=== PATIENT | male | born 1935 | race Caucasian/White ===

== ENCOUNTER 2018-06-25 09:18 | Inpatient (IN) ==
[2018-06-25] MEDS ORDERED: Aluminum/Magnesium/Simethacone Susp 30 ML UDC PO ONE (09:27)
[2018-06-25] MEDS ORDERED: Sod Chloride 0.9% Inj 1,000 ML IV.SIG ONE (09:27)
[2018-06-25] MEDS ORDERED: HYDROmorphone PF Inj 0.5 MG/0.5 ML Syringe IV.PUSH STA (09:29)
--- NOTE | 2018-06-25 09:52 | ED ---
HPI General Chief complaint: Nausea/Vomiting/Diarrhea Stated complaint: Low BP Time Seen by Provider: 06/25/18 09:22 Source: patient Mode of arrival: EMS Limitations: no limitations History of Present Illness HPI Narrative: 82 yo male arrives by EMS 2/2 nausea and vomiting for approximately 1 week. pt unable to tolerate PO hydration. + generalized abdominal pain, worse with palpation, constant. zofran by EMS helped nausea. BP 80s per EMS. HR 80s per EMS. pt unaware of potential causes for nausea and vomiting. [place] sent from [place] due to hypotension in outpatient clinic. Related Data Home Medications Medication Instructions Recorded Confirmed albuterol sulfate 2 puff INHALATION QID PRN 06/25/18 06/25/18 amlodipine 10 mg PO DAILY 06/25/18 06/25/18 aspirin 81 mg PO DAILY 06/25/18 06/25/18 nitroglycerin 0.4 mg SUBLINGUAL Q5-15M PRN 06/25/18 06/25/18 omeprazole 20 mg PO DAILY 06/25/18 06/25/18 sumatriptan succinate 100 mg PO Q2-4H PRN 06/25/18 06/25/18 Allergies Allergy/AdvReac Type Severity Reaction Status Date / Time No Known Allergies Allergy Verified 06/25/18 18:40 Review of Systems ROS Unobtainable ROS Unobtainable: unobtainable due to mental condition PMFSH Social History Social History Substance History: No History of Abuse Second Hand Smoke Exposure: No Smoking Status: Never smoker How Often Do You Have a Drink Containing Alcohol: Never Recent Travel in [facility] within the Last 8 Weeks: No Recent Out of Country Travel within the Last 8 Weeks: No Immunization History Tetanus Immunization: Unsure Exam Narrative Exam Narrative: GENERAL: 82 yo M, moderate distress 2/2 nausea and/or pain SKIN: Focused skin assessment warm/dry. HEAD: Atraumatic. Normocephalic. EYES: Pupils equal and round. No scleral icterus. No injection or drainage. ENT: No nasal bleeding or discharge. Mucous membranes pink and moist. NECK: Trachea midline. No JVD. CARDIOVASCULAR: Regular rate and rhythm. No murmur appreciated. RESPIRATORY: No accessory muscle use. Clear to auscultation. Breath sounds equal bilaterally. GASTROINTESTINAL: soft. TTP generally. MUSCULOSKELETAL: No obvious deformities. No clubbing. No cyanosis. No edema. NEUROLOGICAL: Awake and alert. No obvious cranial nerve deficits. Motor grossly within normal limits. Normal speech. PSYCHIATRIC: Appropriate mood and affect; insight and judgment normal. Course Initial Documented Vital Signs Pulse Rate 82 06/25/18 09:24 Respiratory Rate 18 06/25/18 09:24 Blood Pressure 114/67 06/25/18 09:24 Pulse Oximetry 100 06/25/18 09:24 Last Documented Vital Signs Temperature 97.9 F 06/27/18 12:00 Pulse Rate 63 06/27/18 12:00 Respiratory Rate 18 06/27/18 12:00 Blood Pressure 99/53 L 06/27/18 12:00 Pulse Oximetry 95 06/27/18 12:00 Medical Decision Making MDM Narrative Medical decision making narrative: MARY JANE seen here with BUN/Cr of 89/2.82. Pt to be admitted for IVF and monitoring of renal indices. MARY JANE considered 2/[address] imaging reassuring. Pt had excellent initial response here after IVF and IV zofran. D/w Dr Monroy for [facility]. Medical Screen Exam Complete: Yes Emergency Medical Condition: Yes Lab Data Result diagrams: 06/27/18 06:31 06/27/18 06:31 Lab Results 06/25/18 06/25/18 06/25/18 Range/Units 09:41 09:41 09:41 WBC 16.7 H (4.0-11.0) th/mm3 RBC 3.94 L (4.50-5.90) mil/mm3 Hgb 13.2 (13.0-17.0) gm/dL Hct 37.5 L (39.0-51.0) % MCV 95.0 (80.0-100.0) fL MCH 33.3 (27.0-34.0) pg MCHC 35.1 (32.0-36.0) % RDW 13.1 (11.6-17.2) % Plt Count 184 (150-450) th/mm3 MPV 10.9 (7.0-11.0) fL Prelim Diff (Auto) Slide review pending Neut % (Auto) 86.7 H (16.0-70.0) % Lymph % (Auto) 7.6 L (9.0-44.0) % [place] % (Auto) 5.2 (0.0-8.0) % Eos % (Auto) 0.0 (0.0-4.0) % Baso % (Auto) 0.5 (0.0-2.0) % Neut # (Auto) 14.5 H (1.8-7.7) th/mm3 Lymph # (Auto) 1.3 (1.0-4.8) th/mm3 [place] # (Auto) 0.9 (0.0-0.9) th/mm3 Eos # (Auto) 0.0 (0.0-0.4) th/mm3 Baso # (Auto) 0.1 (0.0-0.2) th/mm3 WBC Differential Manual diff final Seg Neuts % (Manual) 80 H (16-70) % Band Neuts % (Manual) 4 (0-6) % Lymphocytes % (Manual) 13 (9-44) % Monocytes % (Manual) 3 (0-8) % Abs Neuts (Manual) 14.0 H (1.8-7.7) th/mm3 Differential Comment . Platelet Estimate Normal (Normal) Platelet Morphology Normal (Normal) RBC Morphology Normal (Normal) PT 15.3 H (9.8-11.6) sec INR 1.5 Ratio APTT 25.6 (23.4-31.7) sec Sodium 142 (136-145) meq/L Potassium 3.2 L (3.5-5.1) meq/L Chloride 114 H (98-107) meq/L Carbon Dioxide 13.9 L (21.0-32.0) meq/L Anion Gap 14 (5-15) meq/L BUN 89 H (7-18) mg/dL Creatinine 2.82 H (0.60-1.30) mg/dL Estimated GFR 22 L (>89) mL/min Random Glucose 151 H (74-106) mg/dL Lactic Acid (0.4-2.0) mmol/L Calcium 5.2 L* (8.5-10.1) mg/dL Calcium Adj for Albumin 6.6 L* (8.5-10.1) mg/dL Magnesium 1.0 L (1.5-2.5) mg/dL Total Bilirubin 0.3 (0.2-1.0) mg/dL AST 10 L (15-37) U/L ALT 11 L (12-78) U/L Alkaline Phosphatase 107 (45-117) U/L Troponin I Less than 0.02 L (0.02-0.05) ng/mL Total Protein 4.5 L (6.4-8.2) g/dL Albumin 2.3 L (3.4-5.0) g/dL Lipase 129 (73-393) U/L Urine Color (Yellw/Straw) Urine Clarity (Clear) Urine pH (5.0-8.5) Ur Specific [place] (1.002-1.035) Urine Protein (Neg-Trace) mg/dL Urine Glucose (UA) (Negative) mg/dL Urine Ketones (Negative) mg/dL Urine Occult Blood (Negative) Urine Nitrate (Negative) Urine Bilirubin (Negative) Urine Urobilinogen (Less than 2) mg/dL Ur Leukocyte Esterase (Negative) Urine RBC (0-3) /hpf Urine WBC (0-5) /hpf Urine Bacteria (None) /hpf Urine Mucus (Occasional) /lpf Micro UA Comment Ur Microscopic Review Urine Culture Comments Stl C.difficile DNA Amp (Negative) St C. diff Tox Epid 027 (Negative) 06/25/18 06/25/18 06/26/18 Range/Units 16:18 21:40 05:24 WBC 13.7 H (4.0-11.0) th/mm3 RBC 3.86 L (4.50-5.90) mil/mm3 Hgb 12.8 L (13.0-17.0) gm/dL Hct 36.0 L (39.0-51.0) % MCV 93.2 (80.0-100.0) fL MCH 33.1 (27.0-34.0) pg MCHC 35.6 (32.0-36.0) % RDW 12.9 (11.6-17.2) % Plt Count 183 (150-450) th/mm3 MPV 10.9 (7.0-11.0) fL Prelim Diff (Auto) Neut % (Auto) 86.0 H (16.0-70.0) % Lymph % (Auto) 7.1 L (9.0-44.0) % [place] % (Auto) 6.5 (0.0-8.0) % Eos % (Auto) 0.2 (0.0-4.0) % Baso % (Auto) 0.2 (0.0-2.0) % Neut # (Auto) 11.8 H (1.8-7.7) th/mm3 Lymph # (Auto) 1.0 (1.0-4.8) th/mm3 [place] # (Auto) 0.9 (0.0-0.9) th/mm3 Eos # (Auto) 0.0 (0.0-0.4) th/mm3 Baso # (Auto) 0.0 (0.0-0.2) th/mm3 WBC Differential . Seg Neuts % (Manual) (16-70) % Band Neuts % (Manual) (0-6) % Lymphocytes % (Manual) (9-44) % Monocytes % (Manual) (0-8) % Abs Neuts (Manual) (1.8-7.7) th/mm3 Differential Comment Auto diff final Platelet Estimate (Normal) Platelet Morphology (Normal) RBC Morphology (Normal) PT (9.8-11.6) sec INR Ratio APTT (23.4-31.7) sec Sodium (136-145) meq/L Potassium (3.5-5.1) meq/L Chloride (98-107) meq/L Carbon Dioxide (21.0-32.0) meq/L Anion Gap (5-15) meq/L BUN (7-18) mg/dL Creatinine (0.60-1.30) mg/dL Estimated GFR (>89) mL/min Random Glucose (74-106) mg/dL Lactic Acid 1.1 (0.4-2.0) mmol/L Calcium (8.5-10.1) mg/dL Calcium Adj for Albumin (8.5-10.1) mg/dL Magnesium (1.5-2.5) mg/dL Total Bilirubin (0.2-1.0) mg/dL AST (15-37) U/L ALT (12-78) U/L Alkaline Phosphatase (45-117) U/L Troponin I (0.02-0.05) ng/mL Total Protein (6.4-8.2) g/dL Albumin (3.4-5.0) g/dL Lipase (73-393) U/L Urine Color (Yellw/Straw) Urine Clarity (Clear) Urine pH (5.0-8.5) Ur Specific [place] (1.002-1.035) Urine Protein (Neg-Trace) mg/dL Urine Glucose (UA) (Negative) mg/dL Urine Ketones (Negative) mg/dL Urine Occult Blood (Negative) Urine Nitrate (Negative) Urine Bilirubin (Negative) Urine Urobilinogen (Less than 2) mg/dL Ur Leukocyte Esterase (Negative) Urine RBC (0-3) /hpf Urine WBC (0-5) /hpf Urine Bacteria (None) /hpf Urine Mucus (Occasional) /lpf Micro UA Comment Ur Microscopic Review Urine Culture Comments Stl C.difficile DNA Amp Negative (Negative) St C. diff Tox Epid 027 Negative (Negative) 06/26/18 06/27/18 06/27/18 Range/Units 05:24 05:55 06:31 WBC 8.1 (4.0-11.0) th/mm3 RBC 2.91 L (4.50-5.90) mil/mm3 Hgb 9.8 L D (13.0-17.0) gm/dL Hct 28.0 L (39.0-51.0) % MCV 96.4 (80.0-100.0) fL MCH 33.8 (27.0-34.0) pg MCHC 35.1 (32.0-36.0) % RDW 12.9 (11.6-17.2) % Plt Count 134 L (150-450) th/mm3 MPV 11.1 H (7.0-11.0) fL Prelim Diff (Auto) Neut % (Auto) 67.5 (16.0-70.0) % Lymph % (Auto) 18.1 (9.0-44.0) % [place] % (Auto) 6.6 (0.0-8.0) % Eos % (Auto) 7.2 H (0.0-4.0) % Baso % (Auto) 0.6 (0.0-2.0) % Neut # (Auto) 5.5 (1.8-7.7) th/mm3 Lymph # (Auto) 1.5 (1.0-4.8) th/mm3 [place] # (Auto) 0.5 (0.0-0.9) th/mm3 Eos # (Auto) 0.6 H (0.0-0.4) th/mm3 Baso # (Auto) 0.1 (0.0-0.2) th/mm3 WBC Differential . Seg Neuts % (Manual) (16-70) % Band Neuts % (Manual) (0-6) % Lymphocytes % (Manual) (9-44) % Monocytes % (Manual) (0-8) % Abs Neuts (Manual) (1.8-7.7) th/mm3 Differential Comment Auto diff final Platelet Estimate (Normal) Platelet Morphology (Normal) RBC Morphology (Normal) PT (9.8-11.6) sec INR Ratio APTT (23.4-31.7) sec Sodium 141 (136-145) meq/L Potassium 4.0 D (3.5-5.1) meq/L Chloride 109 H (98-107) meq/L Carbon Dioxide 20.1 L (21.0-32.0) meq/L Anion Gap 12 (5-15) meq/L BUN 107 H (7-18) mg/dL Creatinine 2.58 H (0.60-1.30) mg/dL Estimated GFR 24 L (>89) mL/min Random Glucose 170 H (74-106) mg/dL Lactic Acid (0.4-2.0) mmol/L Calcium 7.8 L D (8.5-10.1) mg/dL Calcium Adj for Albumin (8.5-10.1) mg/dL Magnesium (1.5-2.5) mg/dL Total Bilirubin 0.4 (0.2-1.0) mg/dL AST 14 L (15-37) U/L ALT 15 (12-78) U/L Alkaline Phosphatase 135 H (45-117) U/L Troponin I (0.02-0.05) ng/mL Total Protein 5.9 L D (6.4-8.2) g/dL Albumin 3.1 L D (3.4-5.0) g/dL Lipase (73-393) U/L Urine Color Yellow (Yellw/Straw) Urine Clarity Clear (Clear) Urine pH 5.0 (5.0-8.5) Ur Specific [place] 1.014 (1.002-1.035) Urine Protein Negative (Neg-Trace) mg/dL Urine Glucose (UA) 50 (Negative) mg/dL Urine Ketones Negative (Negative) mg/dL Urine Occult Blood Negative (Negative) Urine Nitrate Negative (Negative) Urine Bilirubin Negative (Negative) Urine Urobilinogen Less than 2 (Less than 2) mg/dL Ur Leukocyte Esterase Negative (Negative) Urine RBC 1 (0-3) /hpf Urine WBC 1 (0-5) /hpf Urine Bacteria Rare H (None) /hpf Urine Mucus Few H (Occasional) /lpf Micro UA Comment Culture not ind Ur Microscopic Review Not Reportable Urine Culture Comments Culture not ind Stl C.difficile DNA Amp (Negative) St C. diff Tox Epid 027 (Negative) 06/27/18 Range/Units 06:31 WBC (4.0-11.0) th/mm3 RBC (4.50-5.90) mil/mm3 Hgb (13.0-17.0) gm/dL Hct (39.0-51.0) % MCV (80.0-100.0) fL MCH (27.0-34.0) pg MCHC (32.0-36.0) % RDW (11.6-17.2) % Plt Count (150-450) th/mm3 MPV (7.0-11.0) fL Prelim Diff (Auto) Neut % (Auto) (16.0-70.0) % Lymph % (Auto) (9.0-44.0) % [place] % (Auto) (0.0-8.0) % Eos % (Auto) (0.0-4.0) % Baso % (Auto) (0.0-2.0) % Neut # (Auto) (1.8-7.7) th/mm3 Lymph # (Auto) (1.0-4.8) th/mm3 [place] # (Auto) (0.0-0.9) th/mm3 Eos # (Auto) (0.0-0.4) th/mm3 Baso # (Auto) (0.0-0.2) th/mm3 WBC Differential Seg Neuts % (Manual) (16-70) % Band Neuts % (Manual) (0-6) % Lymphocytes % (Manual) (9-44) % Monocytes % (Manual) (0-8) % Abs Neuts (Manual) (1.8-7.7) th/mm3 Differential Comment Platelet Estimate (Normal) Platelet Morphology (Normal) RBC Morphology (Normal) PT (9.8-11.6) sec INR Ratio APTT (23.4-31.7) sec Sodium 148 H (136-145) meq/L Potassium 4.0 (3.5-5.1) meq/L Chloride 115 H (98-107) meq/L Carbon Dioxide 26.0 (21.0-32.0) meq/L Anion Gap 7 (5-15) meq/L BUN 56 H (7-18) mg/dL Creatinine 1.47 H (0.60-1.30) mg/dL Estimated GFR 46 L (>89) mL/min Random Glucose 106 (74-106) mg/dL Lactic Acid (0.4-2.0) mmol/L Calcium 7.1 L* (8.5-10.1) mg/dL Calcium Adj for Albumin 8.5 D (8.5-10.1) mg/dL Magnesium (1.5-2.5) mg/dL Total Bilirubin 0.3 (0.2-1.0) mg/dL AST 13 L (15-37) U/L ALT 12 (12-78) U/L Alkaline Phosphatase 93 (45-117) U/L Troponin I (0.02-0.05) ng/mL Total Protein 4.3 L D (6.4-8.2) g/dL Albumin 2.2 L D (3.4-5.0) g/dL Lipase (73-393) U/L Urine Color (Yellw/Straw) Urine Clarity (Clear) Urine pH (5.0-8.5) Ur Specific [place] (1.002-1.035) Urine Protein (Neg-Trace) mg/dL Urine Glucose (UA) (Negative) mg/dL Urine Ketones (Negative) mg/dL Urine Occult Blood (Negative) Urine Nitrate (Negative) Urine Bilirubin (Negative) Urine Urobilinogen (Less than 2) mg/dL Ur Leukocyte Esterase (Negative) Urine RBC (0-3) /hpf Urine WBC (0-5) /hpf Urine Bacteria (None) /hpf Urine Mucus (Occasional) /lpf Micro UA Comment Ur Microscopic Review Urine Culture Comments Stl C.difficile DNA Amp (Negative) St C. diff Tox Epid 027 (Negative) Imaging Data Radiologist's impression: Abdomen/Bladder Ultrasound 06/25/18 00:00 CONCLUSION: 1. Echogenic kidneys consistent with medical renal disease. 2. No sonographic evidence for obstructive uropathy. 3. Nonspecific prostate enlargement. Abdomen/Pelvis CT 06/25/18 10:43 CONCLUSION: 1. Nonspecific, nonobstructive bowel gas pattern which may represent an ileus and/or gastroenteritis. 2. 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 3. Status post cholecystectomy. Discharge Plan Discharge Disposition Patient Disposition: ED Admit(ED Internal Use Only) Discharge Condition Condition: Good Discharge Order Discharge Orders: Discharge Order (Routine); Ordered 06/27/18 Ordered By: Triston Monroy ED Use Only Admit Order (Routine); Ordered 06/25/18 Ordered By: Caio Machado Physicians Team ED Provider: Caio Machado Primary Care Provider: [facility] [place] Attending Provider: Triston Monroy Status ED Status: Left Department Discharge Information Discharge Date/Time: 06/25/18 14:15
[2018-06-25 09:59] LABS: Baso # (Auto) 0.1 th/mm3 (0.0-0.2); Baso % (Auto) 0.5 % (0.0-2.0); Hematocrit 37.5 % (39.0-51.0); Hemoglobin 13.2 gm/dL (13.0-17.0); Lymph # (Auto) 1.3 th/mm3 (1.0-4.8); Lymph % (Auto) 7.6 % (9.0-44.0); Mean Corpuscular HGB Conc 35.1 % (32.0-36.0); Mean Corpuscular Hemoglobin 33.3 pg (27.0-34.0); Mean Platelet Volume 10.9 fL (7.0-11.0); Mono # (Auto) 0.9 th/mm3 (0.0-0.9); Mono % (Auto) 5.2 % (0.0-8.0); Neut # (Auto) 14.5 th/mm3 (1.8-7.7); Neut % (Auto) 86.7 % (16.0-70.0); Platelet Count 184 th/mm3 (150-450); Red Blood Count 3.94 mil/mm3 (4.50-5.90); Red Cell Distribution Width 13.1 % (11.6-17.2); White Blood Count 16.7 th/mm3 (4.0-11.0)
[2018-06-25 10:09] LABS: Activated Partial Thrombo Time 25.6 sec (23.4-31.7); INR 1.5 Ratio; Prothrombin Time 15.3 sec (9.8-11.6)
[2018-06-25 10:34] LABS: Alanine Aminotransferase 11 U/L (12-78); Albumin 2.3 g/dL (3.4-5.0); Alkaline Phosphatase 107 U/L (45-117); Anion Gap 14 meq/L (5-15); Aspartate Aminotransferase 10 U/L (15-37); Blood Urea Nitrogen 89 mg/dL (7-18); Calcium 5.2 mg/dL (8.5-10.1); Carbon Dioxide 13.9 meq/L (21.0-32.0); Chloride 114 meq/L (98-107); Glomerular Filtration Rate 22 mL/min (>89); Glucose,Random 151 mg/dL (74-106); Lipase 129 U/L (73-393); Potassium 3.2 meq/L (3.5-5.1); Sodium 142 meq/L (136-145); Total Protein 4.5 g/dL (6.4-8.2)
[2018-06-25 10:45] LABS: Lymphocytes 13 % (9-44); Monocytes 3 % (0-8); Platelet Estimate Normal (Normal); Platelet Morphology Normal (Normal); RBC Morphology Normal (Normal)
[2018-06-25] MEDS ORDERED: Sod Chloride 0.9% Inj 1,000 ML IV.SIG SCH (10:45)
--- NOTE | 2018-06-25 11:28 | CT ---
EXAM DATE: 06/25/2018 11:15 AM EST AGE/SEX: 82 years / Male INDICATIONS: Diffuse abdomen pain with nausea, vomiting and diarrhea for one week. CLINICAL DATA: This is the patient's initial encounter. Patient reports that signs and symptoms have been present for 1 week and indicates a pain score of 8/10. MEDICAL/SURGICAL HISTORY: Diabetes. Hypertension. None. RADIATION DOSE: 5.81 CTDI (mGy) COMPARISON: No prior exams available for comparison. TECHNIQUE: Multiple contiguous axial images were obtained through the abdomen. Images were obtained using multiple row detector helical technique. Using automated exposure control and adjustment of the mA and/or kV according to patient size, radiation dose was kept as low as reasonably achievable to o btain optimal diagnostic quality images. DICOM format image data is available electronically for rev iew and comparison. FINDINGS: Lower Lungs: The visualized lower lungs are clear. The patient is noted to be status post median ster notomy. Liver: The liver has a homogeneous density without space-occupying lesion. There is no dilation of th e biliary tree. Status post cholecystectomy. Spleen: Homogeneous density without enlargement. Pancreas: Unremarkable without mass or calcification. Kidneys: Normal in size and shape. No evidence of mass or hydronephrosis. Renal vascular calcificati ons are present. Adrenal Glands: Unremarkable. Aorta: Atherosclerotic changes are noted in the aorta with ectasia, dilatation calcifications. Ther e is a borderline aneurysmal dilatation measuring 2 3 cm. There is dilatation of both common iliac ar teries measuring up to approximately 2 cm. Bowel/Mesentery: No oral contrast or IV contrast was given limiting the sensitivity exam. There are several loops of nondilated air-containing small bowel several small air-fluid levels. Liquid stool i s noted in the colon with multiple air-fluid levels as well. There is no evidence of free air or flui d. Abdominal Wall: Intact. Retroperitoneum: No evidence of adenopathy in the retrocrural, para-aortic, or deep pelvic regions. Bladder: Contours are smooth. Reproductive Organs: No abnormal masses or calcifications seen. Prosthetic rods are noted in the pen is. Inguinal: The inguinal region is unremarkable without evidence of adenopathy. Bony Structures: Osteopenia, degenerative change and scoliosis are present. CONCLUSION: 1. Nonspecific, nonobstructive bowel gas pattern which may represent an ileus and/or gastroenteritis . 2. 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 3. Status post cholecystectomy. Electronically signed by: Joao Tyson MD 06/25/2018 11:27 AM EST
[2018-06-25] MEDS ORDERED: Acetaminophen 325 MG Tablet PO PRN (14:07)
--- NOTE | 2018-06-25 15:11 | P.HP ---
History of Present Illness Primary Care Physician: [facility] Chief Complaint: Intractable nausea and vomiting History of Present Illness: 82-year-old man with a past medical history of hypertension was brought to the emergency department by EMS for evaluation of intractable nausea and vomiting times 7-day duration. [facility] he was found to be severely dehydrated with elevated heart rate and decrease BP. Abnormal lab in the ED revealed increased BUN and creatinine, elevated WBC. Patient state he has been having loose stools more than usual 18- 20/day. Patient denies any recent antibiotics use. Inpatient Certification: I certify that the inpatient services were ordered in accordance with Medicare regulations governing the order. 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 - Medical History Medical History: Medical History (Last Reviewed 06/25/18 @ 11:50 by Hetal Boykin RN) Acute renal failure Diabetes mellitus Diarrhea [place] (hard of hearing) HTN (hypertension) Tinnitus Ulcerative colitis - Surgical History Surgical History: Surgical History (Last Updated 06/25/18 @ 11:50 by Hetal Boykin RN) History of colectomy Hx of cholecystectomy 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 - Family History Family History: Family History (Last Updated 06/25/18 @ 15:05 by Triston Monroy MD) Other Family history non-contributory - Tobacco History Smoking Status: Never smoker - Alcohol History How Often Do You Have a Drink Containing Alcohol: Never - Substance Use History Substance History: No History of Abuse - Travel History Recent Travel in the [place] Within the Last 8 Weeks: No Recent Travel Out of the Country Within the Last 8 Weeks: No - Immunization History Tetanus Immunization: Unsure Medications and Allergies Active Medications: Active Medications Acetaminophen (Tylenol) 650 mg PO Q4H PRN PRN Reason: Temp > 100.4 Al Hydroxide/Mg Hydroxide (Milk Of Magnesia Liq) 30 ml PO Q12H PRN PRN Reason: Mild Constipation Albuterol (Duoneb Neb (Prn)) 1 ampul NEB Q2HR NEB PRN PRN Reason: SHORTNESS OF BREATH Aspirin (Aspirin Chew) 81 mg PO DAILY TEJA Sodium Bicarbonate 50 meq/ (Sodium Chloride) 1,000 mls @ 125 mls/hr IV.CONT .Q8H TEJA Ondansetron HCl (Zofran Inj) 4 mg IV.PUSH Q6H PRN PRN Reason: NAUSEA OR VOMITING Pantoprazole Sodium (Protonix) 20 mg PO DAILY TEJA Senna/Docusate Sodium (Haylie-Colace) 1 tab PO BID TEJA Sodium Chloride (Ns Flush) 2 ml IV.FLUSH PRN PRN PRN Reason: FLUSH AFTER USING IV ACCESS Sodium Chloride (Ns Flush) 2 ml IV.FLUSH BID TEJA Sodium Chloride (Ns Flush) 2 ml IV.FLUSH PRN PRN PRN Reason: FLUSH AFTER USING IV ACCESS Allergies Allergy/AdvReac Type Severity Reaction Status Date / Time No Known Allergies Allergy Verified 06/25/18 09:27 Home Medications Medication Instructions Recorded Confirmed Type albuterol sulfate 2 puff INHALATION QID PRN 06/25/18 06/25/18 History amlodipine 10 mg PO DAILY 06/25/18 06/25/18 History aspirin 81 mg PO DAILY 06/25/18 06/25/18 History hydrochlorothiazide 12.5 mg PO DAILY 06/25/18 06/25/18 History ibuprofen 800 mg PO TID PRN 06/25/18 06/25/18 History metoprolol tartrate 50 mg PO BID 06/25/18 06/25/18 History nitroglycerin 0.4 mg SUBLINGUAL Q5-15M PRN 06/25/18 06/25/18 History omeprazole 20 mg PO DAILY 06/25/18 06/25/18 History sumatriptan succinate 100 mg PO Q2-4H PRN 06/25/18 06/25/18 History tramadol 100 mg PO Q6H PRN 06/25/18 06/25/18 History Exam Vital signs: Vital Signs 06/25/18 09:24 06/25/18 09:31 06/25/18 10:30 Pulse Rate 82 82 87 Respiratory Rate 18 18 Blood Pressure 114/67 96/51 L Pulse Oximetry 100 100 98 06/25/18 11:26 06/25/18 12:25 06/25/18 13:30 Pulse Rate 88 91 H 89 Respiratory Rate 18 16 18 Blood Pressure 100/55 L 106/53 L 114/57 L Pulse Oximetry 98 98 99 Intake & Output 06/24/18 06/25/18 06/25/18 18:59 06:59 18:59 Intake Total 1999 Balance 1999 Weight 61.235 kg Intake: IV 1999 NS Inj 1,000 ML @ 1000 mls/hr 1999 IV.SIG BOLUS TEJA Rx#:[id number] Other: # Bowel Movements 1 Narrative: GENERAL: NAD SKIN: Warm and dry. HEAD: Atraumatic. Normocephalic. EYES: Pupils equal and round. No scleral icterus. No injection or drainage. ENT: No nasal bleeding or discharge. Mucous membranes pink and moist. NECK: Trachea midline. No JVD. CARDIOVASCULAR: Regular rate and rhythm. RESPIRATORY: No accessory muscle use. Clear to auscultation. Breath sounds equal bilaterally. GASTROINTESTINAL: Abdomen soft, non-tender, nondistended. Hepatic and splenic margins not palpable. MUSCULOSKELETAL: Extremities without clubbing, cyanosis, or edema. No obvious deformities. NEUROLOGICAL: Awake and alert. No obvious cranial nerve deficits. Motor grossly within normal limits. Five out of 5 muscle strength in the arms and legs. Normal speech. PSYCHIATRIC: Appropriate mood and affect; insight and judgment normal. Results - Labs CBC & Chem 7: 06/25/18 09:41 06/25/18 09:41 Labs: Laboratory Results - last 24 hr 06/25/18 06/25/18 06/25/18 09:41 09:41 09:41 WBC 16.7 H RBC 3.94 L Hgb 13.2 Hct 37.5 L MCV 95.0 MCH 33.3 MCHC 35.1 RDW 13.1 Plt Count 184 MPV 10.9 Prelim Diff (Auto) Slide review pending Neut % (Auto) 86.7 H Lymph % (Auto) 7.6 L [place] % (Auto) 5.2 Eos % (Auto) 0.0 Baso % (Auto) 0.5 Neut # (Auto) 14.5 H Lymph # (Auto) 1.3 [place] # (Auto) 0.9 Eos # (Auto) 0.0 Baso # (Auto) 0.1 WBC Differential Manual diff final Seg Neuts % (Manual) 80 H Band Neuts % (Manual) 4 Lymphocytes % (Manual) 13 Monocytes % (Manual) 3 Abs Neuts (Manual) 14.0 H Differential Comment . Platelet Estimate Normal Platelet Morphology Normal RBC Morphology Normal PT 15.3 H INR 1.5 APTT 25.6 Sodium 142 Potassium 3.2 L Chloride 114 H Carbon Dioxide 13.9 L Anion Gap 14 BUN 89 H Creatinine 2.82 H Estimated GFR 22 L Random Glucose 151 H Calcium 5.2 L* Calcium Adj for Albumin 6.6 L* Magnesium 1.0 L Total Bilirubin 0.3 AST 10 L ALT 11 L Alkaline Phosphatase 107 Troponin I Less than 0.02 L Total Protein 4.5 L Albumin 2.3 L Lipase 129 - Imaging Impressions Abdomen/Pelvis CT 06/25/18 10:43 CONCLUSION: 1. Nonspecific, nonobstructive bowel gas pattern which may represent an ileus and/or gastroenteritis. 2. 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 3. Status post cholecystectomy. Caprini VTE Risk Assessment Caprini VTE Risk Assessment: Moderate/High Risk (score >= 2) Caprini Risk Assessment Model: Point Value = 1 Point Value = 2 Point Value = 3 Point Value = 5 Age 41-60 Minor surgery BMI > 25 kg/m2 Swollen legs Varicose veins or History of unexplained or recurrent spontaneous Oral contraceptives or hormone replacement Sepsis (< 1 month) Serious lung disease, including pneumonia (< 1 month) Abnormal pulmonary function Acute myocardial infarction Congestive heart failure (< 1 month) History of inflammatory bowel disease Medical patient at bed rest Age 61-74 Arthroscopic surgery Major open surgery (> 45 min) Laparoscopic surgery (> 45 min) Malignancy Confined to bed (> 72 hours) Immobilizing plaster cast Central venous access Age >= 75 History of VTE Family history of VTE Factor V Leiden Prothrombin [id number] Lupus anticoagulant Anticardiolipin antibodies Elevated serum homocysteine Heparin-induced thrombocytopenia Other congenital or acquired thrombophilia Stroke (< 1 month) Elective arthroplasty Hip, pelvis, or leg fracture Acute spinal cord injury (< 1 month) Prophylaxis Regimen: Total Risk Factor Score Risk Level Prophylaxis Regimen 0-1 Low Early ambulation 2 Moderate Order ONE of the following: *Sequential Compression Device (SCD) *Heparin 5000 units SQ BID 3-4 Higher Order ONE of the following medications: *Heparin 5000 units SQ TID *Enoxaparin/Lovenox 40 mg SQ daily (WT < 150 kg, CrCl > 30 mL/min) *Enoxaparin/Lovenox 30 mg SQ daily (WT < 150 kg, CrCl > 10-29 mL/min) *Enoxaparin/Lovenox 30 mg SQ BID (WT < 150 kg, CrCl > 30 mL/min) AND/OR *Sequential Compression Device (SCD) 5 or more Highest Order ONE of the following medications: *Heparin 5000 units SQ TID (Preferred with Epidurals) *Enoxaparin/Lovenox 40 mg SQ daily (WT < 150 kg, CrCl > 30 mL/min) *Enoxaparin/Lovenox 30 mg SQ daily (WT < 150 kg, CrCl > 10-29 mL/min) *Enoxaparin/Lovenox 30 mg SQ BID (WT < 150 kg, CrCl > 30 mL/min) AND *Sequential Compression Device (SCD) Assessment and Plan - Plan 82-year-old man with Severe dehydration Acute renal failure Metabolic acidosis Patient renal function baseline not known, will start aggressive IV fluid hydration with NS +HCO3 Monitor BUN and creatinine, avoid all nephrotoxic drug Check renal ultrasound Nephrology consultation as needed Intractable nausea and vomiting Likely gastroenteritis Continue with aggressive IV fluid resuscitation, antiemetic Will check C. difficile PCR Hypokalemia, hypocalcemia Replace electrolytes and monitor Hypotension Second 2 dehydration Continue IV fluid resuscitation, and hold all antihypertensive medications DVT prophylaxis: Bilateral SCDs
[2018-06-25] MEDS: Sodium Bicarbonate 8.4% Inj 50 MEQ in Sod Chloride 0.9% Inj 950 ML IV.CONT SCH (15:28)
[2018-06-25] MEDS ORDERED: Potassium Chloride 25 MEQ Effervescent Tablet PO ONE (15:45)
--- NOTE | 2018-06-25 16:22 | US ---
EXAM DATE: 06/25/2018 4:14 PM EST AGE/SEX: 82 years / Male INDICATIONS: Increased BUN/Creatnine. CLINICAL DATA: This is the patient's initial encounter. Patient reports that signs and symptoms have been present for 1 day and indicates a pain score of 0/10. MEDICAL/SURGICAL HISTORY: Hypertension. Acute renal failure. Diabetes. Tinnitus. Ulcerative col itis. Cholecystectomy. CABG. Colectomy. COMPARISON: [facility] – [place], [place], CT ABDOMEN & PELVIS W/O CONTRAST, 06/25/2018. . MEASUREMENTS: Right Kidney:__9.6 x 4.7 x 5.0 cm Left Kidney:__8.5 x 3.3 x 4.7 cm FINDINGS: Right Kidney: Diffusely increased echogenicity. No hydronephrosis or stone. Left Kidney: Diffusely increased echogenicity. No hydronephrosis or stone. Small anechoic cyst in the mid pole measuring 1.8 x 1.6 x 1.5 cm. Bladder: Within normal limits given the degree of distension. Other: Prostate is nonspecifically enlarged measuring 4.6 x 4.4 x 3.5 cm. CONCLUSION: 1. Echogenic kidneys consistent with medical renal disease. 2. No sonographic evidence for obstructive uropathy. 3. Nonspecific prostate enlargement. Electronically signed by: Michael Cleveland MD 06/25/2018 4:20 PM EST
[2018-06-25] MEDS ORDERED: Calcium Gluconate Inj 1 GM in Sodium Chlor 0.9% Inj 100 ML IV.SIG ONE (17:00)
--- NOTE | 2018-06-25 18:48 | ECG ---
Date Performed: 06/25/2018 Time Performed: 09:33:53 PTAGE: 82 years EKG: Sinus rhythm WITH SINUS ARRHYTHMIA WITH FIRST DEGREE AV BLOCK SEPTAL MYOCARDIAL INFARCTION ABNORMAL ECG INTERPRET ATION BASED ON A DEFAULT AGE OF 40 YEARS NO PREVIOUS TRACING DOCTOR: Rehan Juarez Interpretating Date/Time 06/25/2018 18:45:13
[2018-06-25] MEDS: Senna/Docusate Sodium 8.6/50 MG Tablet PO SCH (21:37)
[2018-06-26] MEDS: Sodium Bicarbonate 8.4% Inj 50 MEQ in Sod Chloride 0.9% Inj 950 ML IV.CONT SCH ×3 (00:34→15:24)
[2018-06-26 06:17] LABS: Baso % (Auto) 0.2 % (0.0-2.0); Eos % (Auto) 0.2 % (0.0-4.0); Hemoglobin 12.8 gm/dL (13.0-17.0); Lymph % (Auto) 7.1 % (9.0-44.0); Mean Corpuscular HGB Conc 35.6 % (32.0-36.0); Mean Corpuscular Hemoglobin 33.1 pg (27.0-34.0); Mean Corpuscular Volume 93.2 fL (80.0-100.0); Mean Platelet Volume 10.9 fL (7.0-11.0); Mono # (Auto) 0.9 th/mm3 (0.0-0.9); Mono % (Auto) 6.5 % (0.0-8.0); Neut # (Auto) 11.8 th/mm3 (1.8-7.7); Platelet Count 183 th/mm3 (150-450); Red Blood Count 3.86 mil/mm3 (4.50-5.90); Red Cell Distribution Width 12.9 % (11.6-17.2); White Blood Count 13.7 th/mm3 (4.0-11.0)
[2018-06-26 06:38] LABS: Alanine Aminotransferase 15 U/L (12-78); Albumin 3.1 g/dL (3.4-5.0); Alkaline Phosphatase 135 U/L (45-117); Anion Gap 12 meq/L (5-15); Aspartate Aminotransferase 14 U/L (15-37); Blood Urea Nitrogen 107 mg/dL (7-18); Calcium 7.8 mg/dL (8.5-10.1); Carbon Dioxide 20.1 meq/L (21.0-32.0); Chloride 109 meq/L (98-107); Glomerular Filtration Rate 24 mL/min (>89); Glucose,Random 170 mg/dL (74-106); Sodium 141 meq/L (136-145); Total Protein 5.9 g/dL (6.4-8.2)
[2018-06-26] MEDS: Senna/Docusate Sodium 8.6/50 MG Tablet PO SCH (08:13)
[2018-06-26] MEDS: Pantoprazole Sodium 20 MG DR Tablet PO SCH (08:13)
[2018-06-26] MEDS ORDERED: Sod Chloride 0.9% Inj 1,000 ML IV.SIG SCH (08:39)
--- NOTE | 2018-06-26 10:42 | P.PN ---
Subjective Interval history: Follow-up intractable nausea and vomiting/acute renal injury June 26, 2018-patient seen and examined, reports improvement of nausea and vomiting. Renal indices worsening. Physical Exam Vital signs: Vital Signs 06/25/18 11:26 06/25/18 12:25 06/25/18 13:30 Temperature Pulse Rate 88 91 H 89 Respiratory Rate 18 16 18 Blood Pressure 100/55 L 106/53 L 114/57 L Pulse Oximetry 98 98 99 06/25/18 14:25 06/25/18 16:00 06/25/18 20:00 Temperature 97.1 F L 98.3 F Pulse Rate 92 H 105 H Respiratory Rate 16 18 Blood Pressure 117/56 L 110/59 L Pulse Oximetry 95 96 94 L 06/25/18 21:35 06/26/18 00:00 06/26/18 04:00 Temperature 98.1 F 98.2 F Pulse Rate 99 H 97 H Respiratory Rate 18 18 Blood Pressure 104/53 L 114/58 L Pulse Oximetry 94 L 96 95 06/26/18 08:00 06/26/18 09:00 Temperature 98.6 F Pulse Rate 97 H 97 H Respiratory Rate 17 Blood Pressure 134/65 Pulse Oximetry 96 Intake & Output 06/25/18 06/26/18 06/26/18 18:59 06:59 18:59 Intake Total 2470 / 2470 1000 / 1000 1999 Balance 2470 / 2470 1000 / 1000 1999 Weight 61.235 kg 60.1 kg Intake: IV 2110 / 2110 1000 / 1000 1999 Sodium Bicarbonate 8.4% Inj 50 1000 / 1000 1000 / 1000 MEQ In NS Inj 950 ML @ 125 mls/ hr IV.CONT .Q8H TEJA Rx#: [id number] Calcium Gluconate Inj 1 GM In 110 / 110 NS Inj 100 ML @ 110 mls/hr IV. SIG ONCE ONE Rx#:[id number] NS Inj 1,000 ML @ 1000 mls/hr 1999 1000 / 1000 IV.SIG BOLUS TEJA Rx#:[id number] Oral 360 / 360 Other: # Voids 1 1 Date of Last Bowel Movement 06/25/18 06/26/18 06/26/18 # Bowel Movements 1 1 Weight On Admission 61.235 kg Narrative: GENERAL: NAD SKIN: Warm and dry. HEAD: Atraumatic. Normocephalic. EYES: Pupils equal and round. No scleral icterus. No injection or drainage. ENT: No nasal bleeding or discharge. Mucous membranes pink and moist. NECK: Trachea midline. No JVD. CARDIOVASCULAR: Regular rate and rhythm. RESPIRATORY: No accessory muscle use. Clear to auscultation. Breath sounds equal bilaterally. GASTROINTESTINAL: Abdomen soft, non-tender, nondistended. Hepatic and splenic margins not palpable. MUSCULOSKELETAL: Extremities without clubbing, cyanosis, or edema. No obvious deformities. NEUROLOGICAL: Awake and alert. No obvious cranial nerve deficits. Motor grossly within normal limits. Five out of 5 muscle strength in the arms and legs. Normal speech. PSYCHIATRIC: Appropriate mood and affect; insight and judgment normal. Results - Labs CBC & Chem 7: 06/26/18 05:24 06/26/18 05:24 Laboratory Results - last 24 hr 06/25/18 06/25/18 06/25/18 09:41 16:18 21:40 WBC RBC Hgb Hct MCV MCH MCHC RDW Plt Count MPV Neut % (Auto) Lymph % (Auto) [place] % (Auto) Eos % (Auto) Baso % (Auto) Neut # (Auto) Lymph # (Auto) [place] # (Auto) Eos # (Auto) Baso # (Auto) WBC Differential Manual diff final Seg Neuts % (Manual) 80 H Band Neuts % (Manual) 4 Lymphocytes % (Manual) 13 Monocytes % (Manual) 3 Abs Neuts (Manual) 14.0 H Differential Comment Platelet Estimate Normal Platelet Morphology Normal RBC Morphology Normal Sodium Potassium Chloride Carbon Dioxide Anion Gap BUN Creatinine Estimated GFR Random Glucose Lactic Acid 1.1 Calcium Total Bilirubin AST ALT Alkaline Phosphatase Total Protein Albumin Stl C.difficile DNA Amp Negative St C. diff Tox Epid 027 Negative 06/26/18 06/26/18 05:24 05:24 WBC 13.7 H RBC 3.86 L Hgb 12.8 L Hct 36.0 L MCV 93.2 MCH 33.1 MCHC 35.6 RDW 12.9 Plt Count 183 MPV 10.9 Neut % (Auto) 86.0 H Lymph % (Auto) 7.1 L [place] % (Auto) 6.5 Eos % (Auto) 0.2 Baso % (Auto) 0.2 Neut # (Auto) 11.8 H Lymph # (Auto) 1.0 [place] # (Auto) 0.9 Eos # (Auto) 0.0 Baso # (Auto) 0.0 WBC Differential . Seg Neuts % (Manual) Band Neuts % (Manual) Lymphocytes % (Manual) Monocytes % (Manual) Abs Neuts (Manual) Differential Comment Auto diff final Platelet Estimate Platelet Morphology RBC Morphology Sodium 141 Potassium 4.0 D Chloride 109 H Carbon Dioxide 20.1 L Anion Gap 12 BUN 107 H Creatinine 2.58 H Estimated GFR 24 L Random Glucose 170 H Lactic Acid Calcium 7.8 L D Total Bilirubin 0.4 AST 14 L ALT 15 Alkaline Phosphatase 135 H Total Protein 5.9 L D Albumin 3.1 L D Stl C.difficile DNA Amp St C. diff Tox Epid 027 - Imaging Impressions Abdomen/Bladder Ultrasound 06/25/18 00:00 CONCLUSION: 1. Echogenic kidneys consistent with medical renal disease. 2. No sonographic evidence for obstructive uropathy. 3. Nonspecific prostate enlargement. Abdomen/Pelvis CT 06/25/18 10:43 CONCLUSION: 1. Nonspecific, nonobstructive bowel gas pattern which may represent an ileus and/or gastroenteritis. 2. 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 3. Status post cholecystectomy. Assessment and Plan - Plan 82-year-old man with Severe dehydration-improving Acute renal failure Metabolic acidosis-improving Sinew with aggressive IV fluid hydration with NS +HCO3 Monitor BUN and creatinine, avoid all nephrotoxic drug Renal ultrasound report noted Nephrology consultation as needed Intractable nausea and vomiting-improving Likely gastroenteritis Continue with aggressive IV fluid resuscitation, antiemetic Hypokalemia, hypocalcemia Resolved with replacement Hypotension-resolved Second 2 dehydration Resolved, will discontinue IV fluid resuscitation, and resume antihypertensive medications accordingly Hypertension DVT prophylaxis: Bilateral SCDs
[2018-06-27] MEDS: Sodium Bicarbonate 8.4% Inj 50 MEQ in Sod Chloride 0.9% Inj 950 ML IV.CONT SCH ×3 (01:26→08:55)
[2018-06-27] MEDS ORDERED: Sodium Chlor 0.9% Inj 250 ML IV.SIG SCH (05:00)
[2018-06-27 06:16] LABS: Bacteria,Urine Rare /hpf; Bilirubin,Urine Negative (Negative); Clarity,Urine Clear (Clear); Color,Urine Yellow (Yellw/Straw); Glucose,Urine (UA) 50 mg/dL (Negative); Leukocyte Esterase,Urine Negative (Negative); Mucus,Urine Few /lpf (Occasional); Nitrite,Urine Negative (Negative); Specific Gravity,Urine 1.014 (1.002-1.035)
[2018-06-27 07:29] LABS: Baso # (Auto) 0.1 th/mm3 (0.0-0.2); Baso % (Auto) 0.6 % (0.0-2.0); Eos # (Auto) 0.6 th/mm3 (0.0-0.4); Eos % (Auto) 7.2 % (0.0-4.0); Hemoglobin 9.8 gm/dL (13.0-17.0); Lymph # (Auto) 1.5 th/mm3 (1.0-4.8); Lymph % (Auto) 18.1 % (9.0-44.0); Mean Corpuscular HGB Conc 35.1 % (32.0-36.0); Mean Corpuscular Hemoglobin 33.8 pg (27.0-34.0); Mean Corpuscular Volume 96.4 fL (80.0-100.0); Mean Platelet Volume 11.1 fL (7.0-11.0); Mono # (Auto) 0.5 th/mm3 (0.0-0.9); Mono % (Auto) 6.6 % (0.0-8.0); Neut # (Auto) 5.5 th/mm3 (1.8-7.7); Neut % (Auto) 67.5 % (16.0-70.0); Platelet Count 134 th/mm3 (150-450); Red Blood Count 2.91 mil/mm3 (4.50-5.90); Red Cell Distribution Width 12.9 % (11.6-17.2); White Blood Count 8.1 th/mm3 (4.0-11.0)
[2018-06-27 08:12] LABS: Albumin 2.2 g/dL (3.4-5.0); Calcium 7.1 mg/dL (8.5-10.1); Total Protein 4.3 g/dL (6.4-8.2)
[2018-06-27] MEDS: Pantoprazole Sodium 20 MG DR Tablet PO SCH (08:50)
[2018-06-27] MEDS ORDERED: amLODIPine 10 MG Tablet PO SCH (09:00)
[2018-06-27 09:34] VITALS: RESP 18
--- NOTE | 2018-06-27 09:58 | P.PN ---
Subjective Interval history: Follow-up intractable nausea and vomiting/acute renal injury June 26, 2018-patient seen and examined, reports improvement of nausea and vomiting. Renal indices worsening. June 27, 2018-patient seen and examined, renal indices significant improved. Patient is now status back to his baseline. No acute event overnight. Physical Exam Vital signs: Vital Signs 06/26/18 12:00 06/26/18 16:00 06/26/18 20:00 Temperature 98.4 F 97.5 F L 97.9 F Pulse Rate 87 81 72 Respiratory Rate 16 16 18 Blood Pressure 107/56 L 102/54 L 90/54 L Pulse Oximetry 97 98 94 L 06/26/18 21:10 06/27/18 00:00 06/27/18 01:32 Temperature 97.5 F L Pulse Rate 71 68 Respiratory Rate 18 Blood Pressure 96/50 L Pulse Oximetry 95 96 06/27/18 04:00 06/27/18 05:41 06/27/18 08:00 Temperature 97.7 F 98.2 F Pulse Rate 63 62 69 Respiratory Rate 17 20 18 Blood Pressure 87/45 L 82/47 L 103/56 L Pulse Oximetry 92 L 93 L 97 06/27/18 09:00 06/27/18 09:36 Temperature Pulse Rate 68 Respiratory Rate Blood Pressure Pulse Oximetry 96 Intake & Output 06/26/18 06/27/18 06/27/18 18:59 06:59 18:59 Intake Total 3080 / 3080 2250 / 2250 1999 Output Total 1100 / 1100 550 / 550 Balance 1979 / 1979 1700 / 1700 1999 Weight 62.4 kg Intake: IV 1999 1250 / 1250 1999 Sodium Bicarbonate 8.4% Inj 50 1000 / 1000 1000 / 1000 1000 / 1000 MEQ In NS Inj 950 ML @ 125 mls/ hr IV.CONT .Q8H TEJA Rx#: [id number] LR 1000 mL Inj 1,000 ML @ Wide 1000 / 1000 Open IV.SIG BOLUS ONE Rx#: [id number] NS Inj 1,000 ML @ 1000 mls/hr 1000 / 1000 IV.SIG BOLUS TEJA Rx#:[id number] NS Inj 250 ML @ 500 mls/hr IV. 250 / 250 SIG BOLUS TEJA Rx#:[id number] Oral 1080 / 1080 1000 / 1000 Output: Urine 1100 / 1100 550 / 550 Other: Date of Last Bowel Movement 06/26/18 06/26/18 06/26/18 # Bowel Movements 1 1 Narrative: GENERAL: NAD SKIN: Warm and dry. HEAD: Atraumatic. Normocephalic. EYES: Pupils equal and round. No scleral icterus. No injection or drainage. ENT: No nasal bleeding or discharge. Mucous membranes pink and moist. NECK: Trachea midline. No JVD. CARDIOVASCULAR: Regular rate and rhythm. RESPIRATORY: No accessory muscle use. Clear to auscultation. Breath sounds equal bilaterally. GASTROINTESTINAL: Abdomen soft, non-tender, nondistended. Hepatic and splenic margins not palpable. MUSCULOSKELETAL: Extremities without clubbing, cyanosis, or edema. No obvious deformities. NEUROLOGICAL: Awake and alert. No obvious cranial nerve deficits. Motor grossly within normal limits. Five out of 5 muscle strength in the arms and legs. Normal speech. PSYCHIATRIC: Appropriate mood and affect; insight and judgment normal. Results - Labs CBC & Chem 7: 06/27/18 06:31 06/27/18 06:31 Laboratory Results - last 24 hr 06/27/18 06/27/18 06/27/18 05:55 06:31 06:31 WBC 8.1 RBC 2.91 L Hgb 9.8 L D Hct 28.0 L MCV 96.4 MCH 33.8 MCHC 35.1 RDW 12.9 Plt Count 134 L MPV 11.1 H Neut % (Auto) 67.5 Lymph % (Auto) 18.1 [place] % (Auto) 6.6 Eos % (Auto) 7.2 H Baso % (Auto) 0.6 Neut # (Auto) 5.5 Lymph # (Auto) 1.5 [place] # (Auto) 0.5 Eos # (Auto) 0.6 H Baso # (Auto) 0.1 WBC Differential . Differential Comment Auto diff final Sodium 148 H Potassium 4.0 Chloride 115 H Carbon Dioxide 26.0 Anion Gap 7 BUN 56 H Creatinine 1.47 H Estimated GFR 46 L Random Glucose 106 Calcium 7.1 L* Calcium Adj for Albumin 8.5 D Total Bilirubin 0.3 AST 13 L ALT 12 Alkaline Phosphatase 93 Total Protein 4.3 L D Albumin 2.2 L D Urine Color Yellow Urine Clarity Clear Urine pH 5.0 Ur Specific [place] 1.014 Urine Protein Negative Urine Glucose (UA) 50 Urine Ketones Negative Urine Occult Blood Negative Urine Nitrate Negative Urine Bilirubin Negative Urine Urobilinogen Less than 2 Ur Leukocyte Esterase Negative Urine RBC 1 Urine WBC 1 Urine Bacteria Rare H Urine Mucus Few H Micro UA Comment Culture not ind Ur Microscopic Review Not Reportable Urine Culture Comments Culture not ind - Procedures none Assessment and Plan - Plan 82-year-old man with Severe dehydration-improving Acute renal failure-improving Metabolic acidosis-improving Renal indices significantly improved with aggressive IV fluid hydration with NS +HCO3 Monitor BUN and creatinine, avoid all nephrotoxic drug Renal ultrasound report noted Intractable nausea and vomiting-improved Likely gastroenteritis Continue with aggressive IV fluid resuscitation, antiemetic Hypokalemia, hypocalcemia Resolved with replacement Hypotension-resolved Second 2 dehydration Resolved, will discontinue IV fluid resuscitation, and resume antihypertensive medications accordingly DVT prophylaxis: Bilateral SCDs
--- NOTE | 2018-06-27 10:00 | P.DS ---
Date of admission: 06/25/18 14:23 Primary care physician: Physician 's [facility] Brief History from admission: 82-year-old man with a past medical history of hypertension was brought to the emergency department by EMS for evaluation of intractable nausea and vomiting times 7-day duration. Patient has gone to the [facility] for his routine visits when he was found to be severely dehydrated with elevated heart rate and decrease BP. Abnormal lab in the ED revealed increased BUN and creatinine, elevated WBC. Patient state he has been having loose stools more than usual 18- 20/day. Patient denies any recent antibiotics use. DS: Summary Hospital Course: Patient admitted secondary to severe dehydration, worsening renal function and intractable nausea and vomiting for which he was started on aggressive IV fluid hydration with monitoring BUN and creatinine. Prior to discharge, renal indices significantly improved and patient able to tolerate p.o. without any compression nausea and vomiting. Vitals remained stable. Physical therapy was consulted. DVT and GI prophylaxis were provided. Vision advised to resume his blood pressure medication accordingly. He will have a repeat BMP in 5 days. - Time Spent with Patient Total time spent providing and/or coordinating discharge services: Less than 30 minutes - Quality: VTE Deep Vein Thrombosis/Pulmonary Embolism Present on Admission: No Exam Vital signs: Vital Signs 06/26/18 12:00 06/26/18 16:00 06/26/18 20:00 Temperature 98.4 F 97.5 F L 97.9 F Pulse Rate 87 81 72 Respiratory Rate 16 16 18 Blood Pressure 107/56 L 102/54 L 90/54 L Pulse Oximetry 97 98 94 L 06/26/18 21:10 06/27/18 00:00 06/27/18 01:32 Temperature 97.5 F L Pulse Rate 71 68 Respiratory Rate 18 Blood Pressure 96/50 L Pulse Oximetry 95 96 06/27/18 04:00 06/27/18 05:41 06/27/18 08:00 Temperature 97.7 F 98.2 F Pulse Rate 63 62 69 Respiratory Rate 17 20 18 Blood Pressure 87/45 L 82/47 L 103/56 L Pulse Oximetry 92 L 93 L 97 06/27/18 09:00 06/27/18 09:36 Temperature Pulse Rate 68 Respiratory Rate Blood Pressure Pulse Oximetry 96 Intake & Output 06/26/18 06/27/18 06/27/18 18:59 06:59 18:59 Intake Total 3080 / 3080 2250 / 2250 1999 Output Total 1100 / 1100 550 / 550 Balance 1979 1700 / 1700 1999 Weight 62.4 kg Intake: IV 1999 1250 / 1250 1999 Sodium Bicarbonate 8.4% Inj 50 1000 / 1000 1000 / 1000 1000 / 1000 MEQ In NS Inj 950 ML @ 125 mls/ hr IV.CONT .Q8H TEJA Rx#: [id number] LR 1000 mL Inj 1,000 ML @ Wide 1000 / 1000 Open IV.SIG BOLUS ONE Rx#: [id number] NS Inj 1,000 ML @ 1000 mls/hr 1000 / 1000 IV.SIG BOLUS TEJA Rx#:[id number] NS Inj 250 ML @ 500 mls/hr IV. 250 / 250 SIG BOLUS TEJA Rx#:[id number] Oral 1080 / 1080 1000 / 1000 Output: Urine 1100 / 1100 550 / 550 Other: Date of Last Bowel Movement 06/26/18 06/26/18 06/26/18 # Bowel Movements 1 1 Narrative: GENERAL: NAD SKIN: Warm and dry. HEAD: Atraumatic. Normocephalic. EYES: Pupils equal and round. No scleral icterus. No injection or drainage. ENT: No nasal bleeding or discharge. Mucous membranes pink and moist. NECK: Trachea midline. No JVD. CARDIOVASCULAR: Regular rate and rhythm. RESPIRATORY: No accessory muscle use. Clear to auscultation. Breath sounds equal bilaterally. GASTROINTESTINAL: Abdomen soft, non-tender, nondistended. Hepatic and splenic margins not palpable. MUSCULOSKELETAL: Extremities without clubbing, cyanosis, or edema. No obvious deformities. NEUROLOGICAL: Awake and alert. No obvious cranial nerve deficits. Motor grossly within normal limits. Five out of 5 muscle strength in the arms and legs. Normal speech. PSYCHIATRIC: Appropriate mood and affect; insight and judgment normal. Results Procedures completed during hospitalization: none Labs on day of discharge: Labs from last 24 hours 06/27/18 06/27/18 06/27/18 06:31 06:31 05:55 WBC 8.1 RBC 2.91 L Hgb 9.8 L D Hct 28.0 L MCV 96.4 MCH 33.8 MCHC 35.1 RDW 12.9 Plt Count 134 L MPV 11.1 H Neut % (Auto) 67.5 Lymph % (Auto) 18.1 [place] % (Auto) 6.6 Eos % (Auto) 7.2 H Baso % (Auto) 0.6 Neut # (Auto) 5.5 Lymph # (Auto) 1.5 [place] # (Auto) 0.5 Eos # (Auto) 0.6 H Baso # (Auto) 0.1 WBC Differential . Differential Comment Auto diff final Sodium 148 H Potassium 4.0 Chloride 115 H Carbon Dioxide 26.0 Anion Gap 7 BUN 56 H Creatinine 1.47 H Estimated GFR 46 L Random Glucose 106 Calcium 7.1 L* Calcium Adj for Albumin 8.5 D Total Bilirubin 0.3 AST 13 L ALT 12 Alkaline Phosphatase 93 Total Protein 4.3 L D Albumin 2.2 L D Urine Color Yellow Urine Clarity Clear Urine pH 5.0 Ur Specific [place] 1.014 Urine Protein Negative Urine Glucose (UA) 50 Urine Ketones Negative Urine Occult Blood Negative Urine Nitrate Negative Urine Bilirubin Negative Urine Urobilinogen Less than 2 Ur Leukocyte Esterase Negative Urine RBC 1 Urine WBC 1 Urine Bacteria Rare H Urine Mucus Few H Micro UA Comment Culture not ind Ur Microscopic Review Not Reportable Urine Culture Comments Culture not ind - Impressions ITS Impressions Abdomen/Bladder Ultrasound 06/25/18 00:00 CONCLUSION: 1. Echogenic kidneys consistent with medical renal disease. 2. No sonographic evidence for obstructive uropathy. 3. Nonspecific prostate enlargement. Abdomen/Pelvis CT 06/25/18 10:43 CONCLUSION: 1. Nonspecific, nonobstructive bowel gas pattern which may represent an ileus and/or gastroenteritis. 2. 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 3. Status post cholecystectomy. Discharge Plan - Discharge Disposition Patient Disposition: 01 Discharge Home - Discharge Condition Condition: Good - Discharge Order Discharge Orders: Discharge Order (Routine); Ordered 06/27/18 Ordered By: Triston Monroy - Physicians Team Primary Care Provider: [facility] Attending Provider: Triston Monroy
[2018-06-27 12:34] VITALS: BP 99/53; PULSE 63; TEMP 97.9; O2SAT 95
== END 2018-06-27 13:29 | disposition home or self-care (01) ==
LOC: NEDA 09:18 → NEPE 09:18 → N07 14:15
PROVIDERS: ADMIT Hospitalist; ATTEND Hospitalist